=== PATIENT | male | born 1990 | race Caucasian/White ===

== ENCOUNTER 2016-08-21 19:08 | Emergency (ER) ==
[2016-08-21] MEDS ORDERED: ASPIRIN PO STA (19:54)
--- NOTE | 2016-08-21 19:56 | PROVIDER DOCUMENTATION ---
HPI-Syncope/Dizziness <KingsleyPrasanth - Last Filed: 08/21/16 21:51> - General Source: patient, family - History of Present Illness-Syncope/Dizzy If witnessed syncope, by whom?: Mother, girlfriend Prior Episodes: reports: single episode today Onset/Duration: reports: 1-3 hours ago Timing: reports: gone now, resolved prior to arrival Position/Activity at time of episode: reports: sitting Symptoms prior to episode: reports: nausea/vomiting, chest pain, racing heart, diaphoresis, rapid heart beat. denies: headache, lightheaded, visual disturbance, abdominal pain, back pain, confusion, injury, recent head trauma Context: reports: lost consciousness, became unresponsive, collapsed, confused after event, breathing shallow. denies: incontinent of urine, incontinent of stool, breathing stopped, lost pulse, seizure activity observed, low blood sugar Loss of Consciousness: prolonged (minutes) (2-3 per witnessed) Location of injury. (If syncope resulted in an injury.): reports: none Current Symptoms: reports: headache. denies: none/feels normal, fever, chills, sweaty, chest pain, breathing difficulty, short of breath, abdominal pain, nausea, vomiting, shoulder pain, arm pain, weakness, lightheaded, dizzy, pale, weak pulse, headache, blurred vision, lightheaded Recently Seen Here or By Another Healthcare Provider: No <Beth Foreman - Last Filed: 08/22/16 01:25> - General Chief Complaint: Syncope Stated Complaint: DIZZY/HIGH BP/FAINTING Time Seen by Provider: 08/21/16 19:26 Allergies/Adverse Reactions: Patient Allergies Allergy/AdvReac Type Severity Reaction Status Date / Time No Known Allergies Allergy Verified 12/03/14 14:53 Home Medications: Divalproex [Depakote] 1,000 mg PO HS 12/03/14 Divalproex Sodium [Depakote] 1,250 mg PO QAM 08/21/16 - History of Present Illness-Syncope/Dizzy Nature of Presenting Problem: 25 year old WM presents with c/o chest pain with associated shortness of breath , difficulty breathing and nausea, while in yazidi, sitting, followed by a sensation of heart racing and then witnessed syncope for 2-3 minutes. mother who is a nurse reports he became pale, clammy with erratic breathing. she reports she palpated a strong fast pulse during event. pt reports he had a similar event approximately 1 months ago, he did not seek treatment and mother report she witnessed that as well and attributed it to seizures, even though it was not typical of his seizures. he generally has tonic clonic seizures and the syncopal event last month did not resemble seizure activity per mother. ( Beth Foreman) Review of Systems - Adult - REVIEW OF SYSTEMS - ADULT Constitutional: reports: see HPI, fatique. denies: chills, fever Eyes: reports: no symptoms reported. denies: discharge, blurred vision, double vision Ears, Nose, Mouth & Throat: reports: no symptoms reported. denies: ear discharge, ear pain, nose pain, loose teeth, throat pain, throat swelling Cardiovascular: reports: see HPI, chest pain, irregular heart rate, palpitations , syncope. denies: edema, heart murmur, orthopnea, poor circulation, PND Respiratory: reports: see HPI, shortness of breath. denies: wheezing Gastrointestinal: reports: see HPI, nausea. denies: abdominal pain, rectal bleeding, vomiting Genitourinary: reports: no symptoms reported. denies: dysuria, hematuria, urgency Musculoskeletal: reports: no symptoms reported. denies: bone pain, joint pain, joint swelling, neck pain Integumentary: reports: no symptoms reported. denies: hives, mole changes, skin thickening Neurological: reports: see HPI, syncope. denies: ataxia, dizziness/vertigo, headache/migraines, loss of balance, numbness, paresthesia, seizure, slurred speech, tremors Psychiatric: reports: no symptoms reported Endocrine: reports: no symptoms reported Hematologic/Lymphatic: reports: no symptoms reported. denies: blood clots, low blood count, prolonged bleeding Allergic/Immunologic: reports: no symptoms reported. denies: frequent infections All Other Systems: Reviewed and Negative <Beth Foreman - Last Filed: 08/22/16 01:25> Past History - Adult - PAST MEDICAL HISTORY-ADULT Review of Records: reports: Old Records Reviewed, Nursing Assessment Review, Medications Reviewed, Social history reviewed & non-contributory. Major Childhood Illnesses: reports: denies history Cardiovascular: reports: denies history Respiratory: reports: denies history Gastrointestinal: reports: denies history Obstetrical/Gynecological: reports: denies history Genitourinary: reports: denies history Musculoskeletal: reports: denies history Neurological: reports: Seizures/Epilepsy Psychiatric: reports: denies history Endocrine/Immune: reports: denies history Other Conditions: reports: denies history - PRIOR SURGERIES/PROCEDURES Surgical/Procedure History: reports: none - PRIOR HOSPITALIZATIONS Prior Hospitalizations: reports: none - IMMUNIZATION STATUS Childhood Immunizations: See Nurse Assessment Flu Vaccine: See Nurse Assessment - FAMILY HISTORY Family History: CAD over 55 yo, cancer, sudden , CAD under 55yo, HTN, other (Sister: cardiac ablation; paternal grandfather: sudden at 51; paternal grandmother: cardiac disease; father: of ca at 41; mother: denies ; paternal uncle: VT/defib; paternal aunt: MVP) - SOCIAL HISTORY Smoking: denies Substance Use: none/never Alcohol Use Frequency: never <Beth Foreman - Last Filed: 08/22/16 01:25> Physical Exam-General - PHYSICAL EXAM-ADULT Initial Vital Signs Reviewed: Yes - CONSTITUTIONAL General Appearance: appears well, alert, no apparent distress - EYES Eyes: PERRL/EOMI, pink conjunctivae - HEAD, EARS, NOSE, MOUTH & THROAT HENMT: normocephalic/atraumatic, moist mucous membranes, normal ENT inspection - NECK Neck: non-tender, full range of motion, supple, normal inspection - RESPIRATORY Respiratory: chest non-tender, lungs clear, normal breath sounds, no pleuratic chest pain, no respiratory distress, no accessory muscle use - CARDIOVASCULAR Cardiovascular: normal peripheral pulses, regular rate, rhythm, no edema, no gallop, no JVD, no murmur, other (irregular). negative: bradycardia, tachycardia, diastolic murmur, systolic murmur, gallop/S3, gallop/S4, extra beats, friction rub, irregularly irregular, PMI displaced laterally - GASTROINTESTINAL (ABDOMEN) Abdominal Exam: normal bowel sounds, non tender, soft - GENITOURINARY Male Genitalia: deferred Rectal Exam: deferred - LYMPHATIC Lymphatic: no adenopathy - MUSCULOSKELETAL Back Exam: normal inspection, no CVA tenderness, no vertebral tenderness Extremity: normal range of motion, non-tender, normal gait. negative: deformity , erythema, inflammation Peripheral Pulses: radial (R): 3+, radial (L): 3+, dorsalis-pedis (R): 3+, dorsalis-pedis (L): 3+ - SKIN Integumentary: normal color, normal turgor, warm/dry - NEUROLOGIC Neurologic: grossly normal, no motor/sensory deficits - PSYCHIATRIC Psych/Mental Status: normal mood/affect, normal thought content, normal thought process, oriented x 3 <Beth Foreman - Last Filed: 08/22/16 01:25> Progress - EKG 1 Time of EKG reading by physician:: 19:48 EKG Read and Signed by:: Josef Saxena EKG Interpretation (*Must complete 3 of following elements*): Abnormal Rate: 65 Rhythm: SINUS RHYTHM W/ MARKED SINUS ARRHYTHMIA [place]: normal QRS: normal <Prasanth Wynn - Last Filed: 08/21/16 21:51> - XRAY 1 XRAY Study: Chest Impression: Normal (per Dr. Saxena) - CT/MRI 1 CT Study: Head Impression: Normal (NAP per Dr. Chacon (prelim read)) <Beth Foreman - Last Filed: 08/22/16 01:25> - PLAN OF CARE/RESULTS Progress/Plan/Lab Results: Laboratory Tests 08/21/16 08/21/16 08/21/16 19:42 20:31 20:31 WBC RBC Hgb Hct MCV MCH MCHC RDW Std Deviation Plt Count MPV Immature Gran % (Auto) Neut % (Auto) Lymph % (Auto) [place] % (Auto) Eos % (Auto) Baso % (Auto) Immature Gran # (Auto) Neut # (Auto) Lymph # (Auto) [place] # (Auto) Eos # (Auto) Baso # (Auto) PT INR APTT (Factor Assay) D-Dimer Sodium 140 Potassium 4.0 Chloride 105 Carbon Dioxide 26 Anion Gap 9 BUN 9 Creatinine 0.6 L Estimated GFR/1.73 m2 > 60 BUN/Creatinine Ratio 15 Glucose 92 POC Glucose 75 Calculated Osmolality 278 Calcium 9.2 Magnesium 2.2 Total Bilirubin 0.20 AST 15 ALT 19 Alkaline Phosphatase 83 Creatine Kinase 81 Troponin T < 0.010 Tcx-Q-Fojunjtqacy Pept Total Protein 6.8 Albumin 4.4 Globulin 2.0 Albumin/Globulin Ratio 2.0 08/21/16 08/21/16 08/21/16 20:31 20:31 20:31 WBC 7.38 RBC 4.57 L Hgb 14.2 Hct 42.1 MCV 92.1 MCH 31.1 H MCHC 33.7 RDW Std Deviation 12.9 Plt Count 249 MPV 10.0 Immature Gran % (Auto) 0.1 Neut % (Auto) 52.8 Lymph % (Auto) 37.3 [place] % (Auto) 7.2 Eos % (Auto) 2.2 Baso % (Auto) 0.4 Immature Gran # (Auto) 0.01 Neut # (Auto) 3.90 Lymph # (Auto) 2.75 [place] # (Auto) 0.53 Eos # (Auto) 0.16 Baso # (Auto) 0.03 PT 12.3 INR 0.88 APTT (Factor Assay) 28.9 D-Dimer 0.23 Sodium Potassium Chloride Carbon Dioxide Anion Gap BUN Creatinine Estimated GFR/1.73 m2 BUN/Creatinine Ratio Glucose POC Glucose Calculated Osmolality Calcium Magnesium Total Bilirubin AST ALT Alkaline Phosphatase Creatine Kinase Troponin T Cei-[id number]-Ajyokcpluqh Pept 8 Total Protein Albumin Globulin Albumin/Globulin Ratio Orders Category Date Time Status Cardiac Monitoring DIRECTED Care 08/21/16 19:55 Active Oxygen Therapy- ED Nursing DIRECTED Care 08/21/16 19:55 Active Saline Loc NOW Care 08/21/16 19:55 Active CHEST-2 VIEWS [RAD] Stat Exams 08/21/16 19:55 Taken HEAD W/O CONTRAST [CT] Stat Exams 08/21/16 19:59 Taken CBC WITH ELECTRONIC DIFF [HEME] Stat Lab 08/21/16 20:31 Completed CK PROFILE [SP CHEM] Stat Lab 08/21/16 20:31 Completed COMPREHENSIVE METABOLIC PANEL [CHEM] Stat Lab 08/21/16 20:[address] D-DIMER [address] [COAG] Stat Lab 08/21/16 20:31 Completed MAGNESIUM [CHEM] Stat Lab 08/21/16 20:31 Completed PRO B-NATRIURETIC PEPTIDE Stat Lab 08/21/16 20:31 Completed [address]IME WITH INR PL [COAG] Stat Lab 08/21/16 20:[address] [COAG] Stat Lab 08/21/16 20:31 Completed TROPONIN T Stat Lab 08/21/16 20:31 Completed Aspirin Med 08/21/16 19:54 Discontinued 325 mg PO STAT STA EKG [EKG] Stat Ther 08/21/16 19:32 Draft Vital Signs - 24 hr 08/21/16 08/21/16 19:23 22:26 Temperature 98.2 F 98 F Pulse Rate 77 71 Respiratory 18 18 Rate Blood Pressure 132/69 116/083 O2 Sat by Pulse 100 99 Oximetry (Beth Foreman) Departure <Prasanth Wynn - Last Filed: 08/21/16 21:51> - Departure Time of Disposition Order: 21:34 Certified Medical Emergency: Emergent <Beth Foreman - Last Filed: 08/22/16 01:25> - Departure DIAGNOSIS: Syncope and collapse Disposition: HOME 01 Condition: Stable Additional Instructions: ED Follow Up Instructions: You have been treated by a care provider in the Emergency Department. These instructions are being provided to you so you can have an understanding of how to care for yourself upon discharge. Upon discharge from the Emergency Department, you are responsible for making arrangements for follow-up care by a physician of your choice. Take all prescribed medications as directed. Return to the Emergency Department immediately for any new or worsening symptoms. You may call the Physician Referral phone number at [phone] to obtain a list of Physicians who are taking new patients. Referrals: None,PCP [Primary Care Provider] - Jac Whatley MD [STAFF PHYSICIAN] - Forms: Return to School/Parent Work Instructions: Syncope Attestation - Physician/ Mid-level Attestation Patient care was provided by Mid-level provider (SPEECH/LANGUAGE THERAPIST/PA):: Yes Mid-level provider:: Beth Foreman Mid-level documentation review:: The Mid-level provider documentation, treatment plan and medical decision making was reviewed by the physician who agrees with all treatment and medical decision making by the [facility]. <Beth Foreman - Last Filed: 08/22/16 01:25> Physician Attestation
--- NOTE | 2016-08-21 19:59 | EKG Report ---
Test Performed on : 08/21/2016 7:47:47 PM Test Reason : ER3A Blood Pressure : / mmHG Vent. Rate : 065 BPM Atrial Rate : 065 BPM P-R Int : 160 ms QRS Dur : 078 ms QT Int : 364 ms P-R-T Axes : 045 080 091 degrees QTc Int : 378 ms Sinus rhythm. with marked sinus arrhythmia. Otherwise normal ECG When compared with ECG of 03-DEC-2014 14:46, No significant change was found Unconfirmed Result
[2016-08-21 20:34] LABS: MANUAL DIFF NEEDED? NO
[2016-08-21 20:38] LABS: BASO% 0.4 % (0.0-0.8); EOS# 0.16 X1000 (0.0-0.7); EOS% 2.2 % (0.0-10.0); HEMATOCRIT 42.1 % (42.0-52.0); HEMOGLOBIN 14.2 g/dL (14.0-18.0); IMM GRAN# 0.01 X1000 (0.0-0.04); IMM GRAN% 0.1 % (0.0-0.5); LYMPH# 2.75 X1000 (1.2-3.4); LYMPH% 37.3 % (20.5-51.1); MCH 31.1 PG (27-31); MCHC 33.7 g/dL (33-37); MCV 92.1 FL (81-99); MONO# 0.53 X1000 (0.11-0.59); MONO% 7.2 % (1.7-9.3); NEUT% 52.8 % (42.2-75.2); PLT 249 X1000 (130-400); RBC 4.57 XMIL (4.7-6.1)
[2016-08-21 20:51] LABS: AGAP 9; ALBUMIN 4.4 g/dL (3.5-5.0); ALKALINE PHOSPHATASE 83 U/L (32-122); BUN 9 mg/dL (8-22); CALCIUM 9.2 mg/dL (8.8-10.2); CHLORIDE 105 mmol/L (98-107); CK PROFILE 81 U/L (24-204); COSMO 278; GOT 15 U/L (10-34); GPT 19 U/L (10-44); MAGNESIUM 2.2 mg/dL (1.5-2.7); SODIUM 140 mmol/L (136-145); TCO2 26 mmol/L (25-35); TOTAL PROTEIN 6.8 g/dL (6.3-8.3)
[2016-08-21 20:55] LABS: INR 0.88 (0.86-1.15); PROTIME 12.3 Seconds (12.1-15.5)
[2016-08-21 20:56] LABS: PTT PL 28.9 Seconds (22.6-43.9)
[2016-08-21 22:27] VITALS: BP 116/083
--- NOTE | 2016-08-22 08:28 | Diag Imaging Result Document ---
PROCEDURE NAME: CHEST-2 VIEWS - 08/21/2016 FRONTAL AND LATERAL CHEST, TWO VIEWS: FINDINGS: The lungs are well expanded. The heart is not enlarged. The vessels are not distended. No pneumonia. No pleural effusions. No free air beneath the diaphragm. IMPRESSION: No acute abnormality.
--- NOTE | 2016-08-22 09:00 | Diag Imaging Result Document ---
PROCEDURE NAME: HEAD W/O CONTRAST - 08/21/2016 CT HEAD WITHOUT CONTRAST: A dose reduction protocol was used. No comparison exam. FINDINGS: There is no evidence of intracranial hemorrhage, mass effect, midline shift, or hydrocephalus. There is no evidence of infarct although acute infarcts may not be immediately visible. There is no skull fracture. Visualized portions of paranasal sinuses appear clear. IMPRESSION: No visible acute intracranial abnormality. No hemorrhage or mass effect. The on-call radiologist provided preliminary results at 9:31 p.m. on 08/21/2016.
== END 2016-08-21 22:27 | disposition home or self-care (01) ==
LOC: P.ED 19:08
DX: R55 Syncope and collapse (principal); R07.9 Chest pain, unspecified; R06.02 Shortness of breath; R11.0 Nausea; R53.83 Other fatigue; R00.2 Palpitations; I49.9 Cardiac arrhythmia, unspecified; R56.9 Unspecified convulsions; R94.31 Abnormal electrocardiogram [ECG] [EKG]; Z82.49 Family history of ischemic heart disease and other diseases of the circulatory system; Z80.9 Family history of malignant neoplasm, unspecified; Z79.899 Other long term (current) drug therapy
CPT/HCPCS: 70450; 71020; 80053; 82550; 82948; 83735; 83880; 84484; 85025; 85379; 85610; 85730; 93005